=== PATIENT | female | born 1950 | race African-American/Black ===

== ENCOUNTER → 2017-03-10 | Outpatient (CLI) | payer MEDICAID ==
[2017-03-10 15:30] LABS: CHOLESTEROL 217.25 mg/dL (0-200); Direct HDL 65 mg/dL (>40); TRIGLYCERIDES 213 mg/dL (<150)
[2017-03-10 15:51] LABS: DIRECT LDL 106 mg/dL (<100)
[2017-03-10 15:56] LABS: VLDL CHOLESTEROL 42.6 mg/dL (10-31)
== END ==
LOC: LAB 14:37
PROVIDERS: ATTEND Internal Medicine Geriatric Medicine
DX: E78.5 Hyperlipidemia, unspecified (principal)
CPT/HCPCS: 36415; 80061

== ENCOUNTER → 2017-10-05 | Outpatient (CLI) | payer MEDICARE, MEDICAID ==
--- NOTE | 2017-10-05 13:46 | WOMENS IMAGING REPORT ---
EXAM DESCRIPTION: 3D SCREENING MAMMO BILAT COMPLETED DATE/TIME: 10/05/2017 9:45 am REASON FOR STUDY: ROUTINE SCREENING; Z12.31 Z12.31 ENCNTR SCREEN MAMMOGRAM FOR MALIGNANT NEOPLASM O F DEIDRA COMPARISON: 10/01/2016 and 09/24/2015. TECHNIQUE: Standard craniocaudal and mediolateral oblique views of each breast recorded using digita l acquisition and breast tomosynthesis. LIMITATIONS: None. FINDINGS: No masses, calcifications or architectural distortion. No areas of suspicion. Read with the assistance of CAD. .[facility] - R2 Cenova Version 1.3 .[facility] Imaging - R2 Cenova Version 1.3 .[facility] Imaging - R2 Cenova Version 2.4 .[facility] [place] R2 Cenova Version 2.4 .[facility] - R2 Golf Manager Version 9.2 IMPRESSION: NORMAL MAMMOGRAM. BIRADS 1. BREAST DENSITY: b. There are scattered areas of fibroglandular density. BIRAD: 1 NEGATIVE RECOMMENDATION: ROUTINE SCREENING COMMENT: The patient has been notified of the results by letter per MQSA requirements. Additional no tification policies are in place for contacting patient with suspicious or incomplete findings. Quality ID #[id number]: The [employer] recommends an annual screening mammogram for women aged 40 years or over. This facility utilizes a reminder system to ensure that all patients receive reminder letters, and/or direct phone calls for appointments. This includes reminders for routine scr eening mammograms, diagnostic mammograms, or other Breast Imaging Interventions when appropriate. Th is patient will be placed in the appropriate reminder system. The [employer] (ACR) has developed recommendations for screening MRI of the breast s in certain patient populations, to be used in conjunction with mammography. Breast MRI surveillanc e may be appropriate for women with more than 20% lifetime risk of developing breast cancer as deter mined by genetic testing, significant family history of the disease, or history of mantle radiation f or Hodgkins Disease. ACR Practice Guidelines 2008. DBT Technology DBT is a type of tomographic mammography. With conventional mammography, overlapping breast tissue ma y make lesions difficult to detect, even with good compression. DBT uses an x-ray tube that rotates a round the breast, taking images at different angles. These images are then combined to create thin sl ices of the breast that the radiologist can view as a 3D reconstruction. The [employer] unit can perform full-field digital mammograms (2D imaging); or DBT (3D imaging); or both, in a combination mode that quickly performs both the mammogram and the tomosynthesis scan while the breast is still compressed. PQRS 6045F: Fluoroscopic imaging is not utilized for breast tomosynthesis. TECHNICAL DOCUMENTATION: FINDING NUMBER: (1) ASSESSMENT: (1) JOB ID: [id number] [email or web address]- All Rights Reserved
== END ==
LOC: WI 09:54
PROVIDERS: ATTEND Internal Medicine Geriatric Medicine
DX: Z12.31 Encounter for screening mammogram for malignant neoplasm of breast (principal)
CPT/HCPCS: 77063; G0202; 77067

== ENCOUNTER → 2018-10-10 | Outpatient (CLI) | payer MEDICARE, MEDICAID ==
--- NOTE | 2018-10-10 13:26 | WOMENS IMAGING REPORT ---
EXAM DESCRIPTION: 3D SCREENING MAMMO BILAT COMPLETED DATE/TIME: 10/10/2018 12:01 pm REASON FOR STUDY: Z12.31 Z12.31 ENCNTR SCREEN MAMMOGRAM FOR MALIGNANT NEOPLASM OF [place]RA COMPARISON: Multiple since 2010 TECHNIQUE: Standard craniocaudal and mediolateral oblique views of each breast recorded using digita l acquisition and breast tomosynthesis. LIMITATIONS: None. FINDINGS: No masses, calcifications or architectural distortion. No areas of suspicion. Read with the assistance of CAD. .[facility] - R2 Cenova Version 1.3 .[facility] Imaging - R2 Cenova Version 1.3 .[facility] Imaging - R2 Cenova Version 2.4 .[facility] - R2 Cenova Version 2.4 .[facility] - R2 Learning Design Specialist Version 9.2 IMPRESSION: NORMAL MAMMOGRAM. BIRADS 1. BREAST DENSITY: b. There are scattered areas of fibroglandular density. BIRAD: 1 NEGATIVE RECOMMENDATION: ROUTINE SCREENING COMMENT: The patient has been notified of the results by letter per [place] requirements. Additional no tification policies are in place for contacting patient with suspicious or incomplete findings. Quality ID #[id number]: The [employer] recommends an annual screening mammogram for women aged 40 years or over. This facility utilizes a reminder system to ensure that all patients receive reminder letters, and/or direct phone calls for appointments. This includes reminders for routine scr eening mammograms, diagnostic mammograms, or other Breast Imaging Interventions when appropriate. Th is patient will be placed in the appropriate reminder system. The [employer] (ACR) has developed recommendations for screening MRI of the breast s in certain patient populations, to be used in conjunction with mammography. Breast MRI surveillanc e may be appropriate for women with more than 20% lifetime risk of developing breast cancer as deter mined by genetic testing, significant family history of the disease, or history of mantle radiation f or Hodgkins Disease. ACR Practice Guidelines 2008. DBT Technology DBT is a type of tomographic mammography. With conventional mammography, overlapping breast tissue ma y make lesions difficult to detect, even with good compression. DBT uses an x-ray tube that rotates a round the breast, taking images at different angles. These images are then combined to create thin sl ices of the breast that the radiologist can view as a 3D reconstruction. The [employer] unit can perform full-field digital mammograms (2D imaging); or DBT (3D imaging); or both, in a combination mode that quickly performs both the mammogram and the tomosynthesis scan while the breast is still compressed. PQRS 6045F: Fluoroscopic imaging is not utilized for breast tomosynthesis. TECHNICAL DOCUMENTATION: FINDING NUMBER: (1) ASSESSMENT: (1) JOB ID: [id number] [employer]- All Rights Reserved Reading location - IP/workstation name: [facility]
== END ==
LOC: WI 11:30
PROVIDERS: ATTEND Internal Medicine Geriatric Medicine
DX: Z12.31 Encounter for screening mammogram for malignant neoplasm of breast (principal)
CPT/HCPCS: 77063; 77067

== ENCOUNTER 2019-10-23 15:20 | Day surgery (SDC) | payer MEDICARE, MEDICAID ==
[2019-10-23] MEDS ORDERED: ACETAMINOPHEN 325 MG TABLET PO PRN (15:49)
[2019-10-23] MEDS ORDERED: PROMETHAZINE HCL INJ 25 MG/1 ML VIAL IV PRN (15:50)
[2019-10-23] MEDS ORDERED: MAG HYDROX/AL HYDROX/SIMETH SUSP 30 ML UDCUP PO PRN (15:51)
[2019-10-23] MEDS ORDERED: PEG 3350/NA SULF,BICARB,CL/KCL 4000 ML PO ONE (16:00)
[2019-10-23] MEDS: DEXTROSE 5%-NORMAL SALINE 1,000 ML IV PRN (19:48)
[2019-10-23] MEDS: SIMETHICONE 80 MG TAB.CHEW PO SCH (20:50)
[2019-10-23] MEDS ORDERED: BISACODYL 5 MG TABEC PO ONE (21:00)
[2019-10-24] MEDS: SIMETHICONE 80 MG TAB.CHEW PO SCH (10:08)
[2019-10-24] MEDS: DEXTROSE 5%-NORMAL SALINE 1,000 ML IV PRN (10:11)
[2019-10-24] MEDS ORDERED: SIMETHICONE 80 MG TAB.CHEW PO SCH (10:30)
[2019-10-24] MEDS ORDERED: ONDANSETRON HCL INJ/PF 4 MG/2 ML SDV ONE (17:40)
[2019-10-24] MEDS ORDERED: FENTANYL CITRATE INJ/PF 100 MCG/2 ML AMPUL ONE (17:40)
[2019-10-24] MEDS ORDERED: DIPHENHYDRAMINE HCL 50 MG/ML VIAL ONE (17:40)
[2019-10-24] MEDS ORDERED: GLUCAGON,HUMAN RECOMB 1 MG INJ ONE (17:41)
[2019-10-24] MEDS ORDERED: FLUMAZENIL INJ 0.5 MG/5 ML VIAL ONE (17:41)
[2019-10-24] MEDS ORDERED: EPINEPHRINE INJ 1 MG/10 ML DISP.SYRIN ONE (17:41)
[2019-10-24] MEDS ORDERED: NALOXONE HCL INJ/PF 0.4 MG/1 ML SDV ONE (17:41)
[2019-10-24] MEDS: MIDAZOLAM 2 MG/2 ML INJ ONE ×2 (18:04→18:07)
--- NOTE | 2019-10-24 18:23 | Operative Report ---
Operative Report DATE OF SURGERY: 10/24/19 Operative Report: Pre-op diagnosis: History of colon polyps Post-op diagnosis: Sigmoid diverticulum and internal hemorrhoids Surgery: Colonoscopy Medications: Versed 2mg, Fentanyl 50 Mcg IV push Tissue removed: None Procedure: After informed consent obtained from patient, conscious sedation was achieved. A digital rectal examination was performed and this was unremarkable. The colonoscope was inserted into the rectum and advanced to the cecum. The appendiceal orifice and the terminal ileum were both identified. The mucosa was examined into details as the colonoscope was slowly pulled out of the patient. The endoscope was retroflexed in the rectum. Patient tolerated the procedure well. Findings Terminal ileum: Cecum: Normal Ascending colon: Normal Transverse colon: Normal Descending colon: Normal Sigmoid colon: Single diverticulum identified Rectum: Normal except for internal hemorrhoids Plan: Follow-up colonoscopy in 10 years OPERATION: .
[2019-10-24 22:11] VITALS: BP 125/58
--- NOTE | 2019-11-21 17:19 | PDOC H&P ---
History of Present Illness Admission Date/PCP: SUNG ALVARADO History of Present Illness: DUSTY BEAL is a 69 year old female who is in the hospital for outpatient bed assignment. She will be getting her bowel prep and a colonoscopy on 10/24/2019 Past Medical History Cardiac Medical History: Reports: Coronary Artery Disease Denies: Myocardial Infarction, Hypertension Pulmonary Medical History: Denies: Asthma, Bronchitis, Chronic Obstructive Pulmonary Disease (COPD), Pneumonia Neurological Medical History: Denies: Seizures Musculoskeltal Medical History: Denies: Arthritis Hematology: Denies: Anemia Past Surgical History Past Surgical History: Denies: Hysterectomy Social History Smoking Status: Never Smoker Drugs: None Family History Parental Family History Reviewed: No Children Family History Reviewed: NA Sibling(s) Family History Reviewed.: NA Medication/Allergy Home Medications: Aspirin [Aspirin 81 mg Chewable Tablet] 81 mg PO DAILY 07/06/16 Atorvastatin Calcium 40 mg PO DAILY 07/06/16 Cetirizine HCl [Zyrtec] 10 mg PO DAILY 07/06/16 Donepezil HCl 5 mg PO DAILY 07/06/16 [place]-3/Dha/Epa/Fish Oil [Fish Oil 1,000 mg Softgel] 1 each PO DAILY 07/06/16 Risperidone 1 mg PO BID 07/06/16 Sertraline HCl 100 mg PO BID 07/06/16 Allergies/Adverse Reactions: No Known Drug Allergies Allergy (Verified 07/06/16 15:17) Review of Systems All systems: reviewed and no additional remarkable complaints except as stated Physical Exam Vital Signs: Temp Pulse Resp BP Pulse Ox 98.5 F 88 18 125/58 L 98 10/24/19 20:30 10/24/19 20:30 10/24/19 20:30 10/24/19 20:30 10/24/19 20:30 Exam: General: Patient is alert and looks well. HEENT: There is no pallor or jaundice. PERRLA. Oropharynx normal Respiratory: No chest deformity. No respiratory distress. Chest wall palpitation was unremarkable. Breath sounds were normal Cardiovascular: Heart sounds 1 and 2 normal with no murmurs. Abdominal: Not distended. Soft and nontender. Liver and spleen not palpable. No ascites demonstrated. Bowel sounds active. Rectal examination was deferred. Extremities: No edema Neurological: Alert and oriented x4. Grossly nonfocal. Normal speech Skin: No significant rash Psychological: Normal affect Assessment & Plan - Diagnosis (1) History of colonic polyps Is this a current diagnosis for this admission?: Yes
--- NOTE | 2019-11-21 17:19 | Discharge Summary ---
Discharge Summary (SDC) - Discharge Final Diagnosis: Diverticulosis Date of Surgery: 10/24/19 Discharge Date: 10/24/19 Condition: Good Forms: Discharge POC-Adult Referrals: MARIA LUNDBERG MD [ACTIVE STAFF] - Respiratory Treatments at Home: Deep Breathing/Coughing Discharge Activity: Activity As Tolerated, Balance Activity w/Rest Home Care Assistance: Provided by Family Report the Following to Your Physician Immediately: Fever over 101 Degrees, IV Site Infection Signs
== END 2019-10-24 21:00 | disposition home or self-care (01) ==
LOC: 5 15:20 → OROUT 15:20 → UNDOADMOB 15:20 → OROUT 10-24 21:00 → UNDODISOB 10-24 21:00 → EDSTATUS 10-31 13:58
PROVIDERS: ATTEND Internal Medicine Gastroenterology
DX: Z12.11 Encounter for screening for malignant neoplasm of colon (principal); K64.8 Other hemorrhoids; K57.30 Diverticulosis of large intestine without perforation or abscess without bleeding; Z86.010 Personal history of colon polyps; I25.10 Atherosclerotic heart disease of native coronary artery without angina pectoris; Z79.82 Long term (current) use of aspirin; Z79.899 Other long term (current) drug therapy
CPT/HCPCS: 45378; G0105; J2250; A9270 ×4; J3010; J7042 ×2; J0171; J1200; J1610; J2310; J2405; J3490